=== PATIENT | female | born 1945 | race Caucasian/White ===

== ENCOUNTER 2023-08-01 06:11 | Day surgery (SDC) | payer MEDICARE, BC ==
[~2023-08-01] VITALS: Ht 157.5 cm; Wt 59.0 kg
[~2023-08-01 06:11] MED LIST: ATOR20TA66 PO; CHOL50002 PO; DULO60CA65 PO; FLUC150T46 PO; GABA300C PO; LEVO75CA5 PO; LOSA50TA64 PO; MECO10005 PO; MELA5TAB12 PO; MULT-1085 PO; OMEP40CA21 PO; OXYB5TAB21 PO; POLY17PO10 PO; SULF1TAB45 PO; TAMO10TA14 PO; TIMO5DRO36 LEFTEYE
[2023-08-01 06:35] VITALS: BP 128/54; PULSE 67; RESP 16
[2023-08-01] MEDS ORDERED: LIDOcaine 2% Viscous 15ml cup ONE (07:22)
[2023-08-01] MEDS ORDERED: fentaNYL/PF 50MCG/1 ML 2ML syringe ONE (07:33)
[2023-08-01] MEDS ORDERED: MIDAZolam 1 MG/ML 5ML VIAL ONE (07:34)
[2023-08-01 08:03] VITALS: BP 144/61; PULSE 61; RESP 34; O2SAT 100
[2023-08-01 08:13] VITALS: BP 132/60; PULSE 57; RESP 13; O2SAT 96
[2023-08-01 08:23] VITALS: BP 118/61; PULSE 58; RESP 12; O2SAT 95
[2023-08-01 08:33] VITALS: BP 111/56; PULSE 58; RESP 13; O2SAT 98
== END 2023-08-01 08:45 | disposition home or self-care (01) ==
LOC: GI LAB 06:11
PROVIDERS: ATTEND Surgery
DX: K44.9 Diaphragmatic hernia without obstruction or gangrene (principal); K21.00 Gastro-esophageal reflux disease with esophagitis, without bleeding; K29.70 Gastritis, unspecified, without bleeding
CPT/HCPCS: 43239; 99152; A4620; J2250; J3010; J7030; Z7512

== ENCOUNTER 2023-08-22 08:17 | Observation (INO) | payer MEDICARE, BC ==
[2023-08-15 16:35] LABS: BASOPHILS % (AUTO) 0.6 % (0-1); EOSINOPHILS # (AUTO) 0.1 X10'3 (0-0.9); EOSINOPHILS % (AUTO) 2.3 % (0-6); LYMPHOCYTES # (AUTO) 1.4 X10'3 (1.1-4.8); LYMPHOCYTES % (AUTO) 23.3 % (21-51); MEAN CORPUSCULAR HGB CONC 33.7 g/dL (33.0-36.5); MEAN PLATELET VOLUME 7.8 FL (7.4-10.4); MONOCYTES # (AUTO) 0.5 X10'3 (0-0.9); MONOCYTES % (AUTO) 8.9 % (2-12); NEUTROPHILS # (AUTO) 3.8 X10'3 (1.8-7.7); NEUTROPHILS % (AUTO) 64.9 % (42-75); PRE OP HEMOGLOBIN 11.4 g/dL (12.0-16.0); PRE OP PLATELET COUNT 206 X10'3 (140-440); PRE OP WHITE BLOOD COUNT 5.9 10'3 (4.8-10.8); RED BLOOD COUNT 3.69 X10'6 (4.20-5.60)
[2023-08-15 16:48] LABS: ALBUMIN 3.5 G/DL (3.4-5.0); ALKALINE PHOSPHATASE 54 IU/L (46-116); BLOOD UREA NITROGEN 14 MG/DL (7-18); BUN/CREATININE RATIO 20.9 (10.0-20.0); CALCIUM 8.9 MG/DL (8.5-10.1); CHLORIDE 104 MMOL/L (99-107); CREATININE 0.67 MG/DL (0.40-0.90); PRE OP ALT 35 U/L (30-65); PRE OP ANION GAP 8 (8-16); PRE OP AST 14 U/L (10-37); PRE OP BILIRUB, TOTAL 0.3 MG/DL (0.0-1.0); PRE OP GLUCOSE 85 MG/DL (70-104); PRE OP POTASSIUM 4.2 MMOL/L (3.4-5.1); PRE OP SODIUM 141 MMOL/L (135-145); TOTAL CARBON DIOXIDE 29.2 MMOL/L (24-32); eGFR 85 ML/MIN
[2023-08-22] VITALS (21 sets, daily range): BP systolic 115–149; BP diastolic 51–75; PULSE 66–100; RESP 9–20; TEMP 96.5–99.3; O2SAT 93–100
[~2023-08-22] VITALS: Ht 157.5 cm; Wt 59.5 kg
[2023-08-22] MEDS: DOCUMENT DATE & TIME OF BETA-BLOCKER PO ONE (05:30)
[~2023-08-22 08:17] MED LIST changes: +CALCIUM; +CHOL200080 PO; -CHOL50002 PO; +DULO60CA63 PO; -DULO60CA65 PO; -FLUC150T46 PO; +LOSA100T58 PO; -LOSA50TA64 PO; -MECO10005 PO; +MELA10TA2 PO; -MELA5TAB12 PO; +MOVE FREE; -SULF1TAB45 PO; +VITAMIN B-12
[2023-08-22] MEDS: famotidine 20mg tablet PO ONE (09:08)
[2023-08-22] MEDS: ringers solution, lacted 1,000 ML IV SCH ×3 (09:09→16:25)
[2023-08-22] MEDS: cefazolin 2gm/D5W 100mL 100 ML IV ONE (09:09)
[2023-08-22] MEDS ORDERED: HYDROmorphone/PF 0.2 MG/ML SYRINGE IV PRN ×2 (12:15)
[2023-08-22] MEDS ORDERED: morphine 2 MG/ML inj. syringe IV PRN (12:15)
[2023-08-22] MEDS ORDERED: hydrALAZINE 20mg/ml inj. IV PRN ×2 (12:15→16:30)
[2023-08-22] MEDS ORDERED: morphine 4 MG/ML inj SYRINge IV PRN (12:15)
[2023-08-22] MEDS: acetaminophen 1,000mg/100ml IV 100 ML IV ONE (12:15)
[2023-08-22] MEDS ORDERED: labetalol 20mg/4ml (5mg/ml) syringe IV PRN (12:15)
[2023-08-22] MEDS ORDERED: ondansetron/PF 4mg/2ml inj IV PRN ×2 (12:15→16:15)
[2023-08-22] MEDS ORDERED: proCHLORperazine 10 MG/2 ml inj IV PRN (12:15)
[2023-08-22] MEDS: BUPIVAcaine/PF 2.5mg/ml (0.25%) 10ml vial ONE (13:48)
[2023-08-22] MEDS: LIDOcaine 1% 30ml preserv. free vial ONE (13:48)
[2023-08-22] MEDS ORDERED: sevoflurane 250ml liquid IH ONE (13:49)
[2023-08-22] MEDS ORDERED: fentaNYL/PF 50MCG/1 ML 2ML syringe ONE (13:56)
[2023-08-22] MEDS ORDERED: midazolam 1 mg/ML 2ml injection ONE (13:56)
[2023-08-22] MEDS: LIDOcaine 1% 30ml preserv. free vial IJ ONE (14:44)
[2023-08-22] MEDS ORDERED: propofol inj 20 ML IV ONE (15:49)
[2023-08-22] MEDS ORDERED: dexamethasone sod phosphate 4mg/ml inj. ONE (15:49)
[2023-08-22] MEDS ORDERED: ondansetron/PF 4mg/2ml inj ONE (15:49)
[2023-08-22] MEDS ORDERED: rocuronium 10mg/ml inj IV ONE (15:49)
[2023-08-22] MEDS ORDERED: neostigmine methylsulfate 1 MG/ML 10ml vial ONE (16:07)
[2023-08-22] MEDS ORDERED: glycopyrrolate 0.2mg/ml inj ONE (16:07)
[2023-08-22] MEDS ORDERED: naloxone 0.4 mg/ml inj IV PRN (16:15)
[2023-08-22] MEDS: normal saline 1000ml 1,000 ML IV SCH (16:15)
[2023-08-22] MEDS: HYDROmorph/NS 0.2 mg/ml PCA 100 ML IV SCH (17:00)
[2023-08-22] MEDS: gabapentin 300mg capsule PO SCH (21:36)
[2023-08-22] MEDS: docusate sod 100mg capsule PO SCH (21:36)
[2023-08-22] MEDS: sennosides/docusate sodium tablet PO SCH (21:36)
[2023-08-22] MEDS: ketorolac tromethamine 15mg/ml inj. IV ONE (21:40)
[2023-08-22] MEDS: heparin, porcine 5000 units/ml vial SQ SCH (21:44)
[2023-08-23] MEDS: acetaminophen 325mg tablet PO PRN (01:35)
[2023-08-23 02:00] VITALS: BP 141/55; PULSE 74; RESP 18; TEMP 98.3; O2SAT 96
[2023-08-23 06:00] VITALS: BP 134/68; PULSE 73; RESP 19; TEMP 98.1; O2SAT 97
[2023-08-23 08:00] VITALS: RESP 19; O2SAT 97
[2023-08-23] MEDS: methylnaltrexone br 12mg/0.6ml inj***SubQ only SQ ONE ×2 (08:00→11:08)
[2023-08-23] MEDS: oxybutynin 5mg tablet PO SCH (10:49)
[2023-08-23 10:50] VITALS: BP_SYST 134; PULSE 73
[2023-08-23] MEDS: duloxetine 30mg CAPSULE.DR PO SCH (10:50)
[2023-08-23] MEDS: levoTHYROXINE 75mcg tablet PO SCH (10:50)
[2023-08-23] MEDS: losartan 50mg tablet PO SCH (10:50)
[2023-08-23] MEDS: timolol 0.5% ophthalmic solution 5ml bottle LEFTEYE SCH (10:51)
[2023-08-23] MEDS: atorvastatin 20mg tablet PO SCH (10:51)
[2023-08-23] MEDS ORDERED: PCA WASTE DOCUMENTATION 1 MG ML MC SCH (11:00)
[2023-08-23] MEDS ORDERED: PER5325T PO (11:13)
[2023-08-23] MEDS ORDERED: NALO12.52 PO (11:13)
[2023-08-23 11:30] VITALS: RESP 16
[2023-08-23] MEDS: oxyCODONE/APAP 5-325mg tablet PO PRN (11:30)
== END 2023-08-23 14:40 | disposition home or self-care (01) ==
LOC: PRE-OP 08:17 → SUR 3N 16:22
PROVIDERS: ADMIT Surgery; ATTEND Surgery
DX: K44.9 Diaphragmatic hernia without obstruction or gangrene (principal); K21.9 Gastro-esophageal reflux disease without esophagitis; E03.9 Hypothyroidism, unspecified; F41.8 Other specified anxiety disorders; E78.5 Hyperlipidemia, unspecified; I10 Essential (primary) hypertension; G43.909 Migraine, unspecified, not intractable, without status migrainosus; Z90.710 Acquired absence of both cervix and uterus; Z79.899 Other long term (current) drug therapy
CPT/HCPCS: 43282; 71046; 80053; 82948; 93005; 96365; 96366; 96372; 96375; A4618; C1781; G0378; J0690; J1170; J2710; J3490; J7120; 36415; 71045; 85025; 87081; J1100; J1644; J1885; J2212; J2250; J2405; J2704; J3010